=== PATIENT | female | born 1995 | race Two or more races ===

== ENCOUNTER 2017-08-20 12:02 | Emergency (ER) | payer OTHER ==
[~2017-08-20] VITALS: Ht 157.5 cm; Wt 45.5 kg
[~2017-08-20 12:02] MED LIST: BACTRIM PO; BACTRIM,SEPT1 TABLET PO; CIPRO500 MG PO; ENDOCET 5-3251 EACH PO; HYDROCODON-ACE1 EAC7 PO; IBUPROFEN800 MG PO; IRON325 MG PO; MOTRIN800 MG PO; PEPCID40 MG PO; PRENATAL TABLE1 EACH PO; PROMETHAZINE HC25 M1 PO; PYRIDIUM200 MG PO; ULTRAM50 MG PO; VICODIN 5-3001 EACH PO; VICODIN PO; ZANTAC75 M1 PO; ZOFRAN ODT4 MG PO; ZOFRAN4 MG PO; ZOLOFT25 MG PO; ZOLOFT50 MG PO
[2017-08-20] MEDS ORDERED: TAMIFLU75 MG PO (15:54)
[2017-08-20 16:14] VITALS: BP 103/67
== END 2017-08-20 16:14 | disposition home or self-care (01) ==
LOC: EME 12:02
PROVIDERS: Physician Assistant
DX: J10.1 Influenza due to other identified influenza virus with other respiratory manifestations (principal); F17.200 Nicotine dependence, unspecified, uncomplicated; Z91.040 Latex allergy status; Z88.1 Allergy status to other antibiotic agents; Z88.0 Allergy status to penicillin
CPT/HCPCS: 87502; 99281; 99284